=== PATIENT | female | born 1955 | race Caucasian/White ===

== ENCOUNTER 2017-07-08 07:29 | Inpatient (IN) ==
[2017-07-02 15:15] LABS: Appearance,Urine CLEAR; Bacteria,Urine 0 /hpf (0); Bilirubin,Urine NEG (NEG); Color,Urine YELLOW; Glucose,Urine (UA) NEGATIVE (NEG); Leukocyte Esterase,Urine NEG /uL (NEG); Mucus,Urine FEW /hpf (0); Protein,Urine NEG (NEG); Specific Gravity,Urine 1.016 (1.000-1.035); Urine Blood 0.2 mg/dL (<0.03); Urine RBC 1 /hpf (0-1); Urine Squamous Epithelial Cell 1 /hpf (0-4); Urine WBC 1 /hpf (0-4); Urobilinogen,Urine NEG (NEG)
[2017-07-02 15:55] LABS: Basophils # (Auto) 0 K/mcL (0.0-0.3); Basophils % (Auto) 0.5 % (0.0-2.0); Eosinophils # (Auto) 0.4 K/mcL (0.0-0.7); Eosinophils % (Auto) 4.9 % (0.0-7.0); Granulocytes % (Auto) 56.7 % (38.0-78.0); Lymphocytes # (Auto) 2.2 K/mcL (1.5-4.8); Lymphocytes % (Auto) 30.7 % (15.5-49.0); Mean Cell Volume 88.3 fL (80.0-100.0); Mean Corpuscular HGB Conc 34.4 g/dL (31.0-36.0); Mean Corpuscular Hemoglobin 30.3 pg (26.0-34.0); Monocytes # (Auto) 0.5 K/mcL (0.1-0.9); Monocytes % (Auto) 7.2 % (1.0-12.0); Platelet Count 241 K/mcL (140-440); RBC 4.75 M/mcL (4.00-5.20); Red Cell Distribution Width 13.4 % (11.5-14.5)
[2017-07-02 16:12] LABS: Blood Urea Nitrogen 17 mg/dl (6-20)
[~2017-07-08 07:29] MED LIST: ACETAMINOPHEN 500 MG TABLET PO SCH; CELECOXIB 200 MG CAPSULE PO SCH; PREGABALIN 75 MG CAPSULE PO SCH; ceFAZolin 1 GM VIAL IV SCH; oxyCODONE 10 MG TAB.ER.12H PO SCH
[2017-07-08] MEDS ORDERED: KETOROLAC 30 MG, ROPIVACAINE HCL/PF 49.5 ML, EPINEPHrine 0.5 MG, 0.9 % SODIUM CHLORIDE ... IJ ONE (09:00)
[2017-07-08] MEDS ORDERED: SCOPOLAMINE 1 PATCH PATCH TOPICAL SCH (10:15)
[2017-07-08] MEDS ORDERED: GLYCOPYRROLATE 0.2 MG/ML VIAL IV ONE (10:45)
[2017-07-08] MEDS ORDERED: SCOPOLAMINE 1 PATCH PATCH TOPICAL ONE (10:45)
[2017-07-08] MEDS ORDERED: METOCLOPRAMIDE 10 MG/2 ML VIAL IV ONE (10:45)
[2017-07-08] MEDS ORDERED: DEXAMETHASONE 10 MG/ML VIAL IV ONE (10:45)
[2017-07-08] MEDS ORDERED: PHENYLEPHRINE 10 MG/ML VIAL IV ONE (10:45)
[2017-07-08] MEDS ORDERED: PROPOFOL 200 MG/20 ML VIAL IV ONE (10:45)
[2017-07-08] MEDS ORDERED: MIDAZOLAM 2 MG/2 ML VIAL IV ONE (10:45)
[2017-07-08] MEDS ORDERED: KETAMINE 100 MG/ML ML IV ONE (10:45)
[2017-07-08] MEDS ORDERED: FAMOTIDINE/PF 20 MG/2 ML VIAL IV ONE (10:45)
[2017-07-08] MEDS ORDERED: ONDANSETRON 4 MG/2 ML VIAL IV ONE (10:45)
[2017-07-08] MEDS ORDERED: TRANEXAMIC ACID 1,000 MG/10 ML VIAL IV ONE ×2 (10:45→13:05)
[2017-07-08] MEDS ORDERED: LIDOCAINE HCL/PF 100 MG/5 ML SYRINGE IV ONE (10:45)
[2017-07-08] MEDS ORDERED: PROMETHAZINE 25 MG/ML VIAL IV ONE (10:45)
[2017-07-08] MEDS ORDERED: GENTAMICIN SULFATE 800 MG/20 ML VIAL IR ONE (11:09)
[2017-07-08] MEDS ORDERED: FLUMAZENIL 0.1 MG/ML ML IV PRN (11:32)
[2017-07-08] MEDS ORDERED: fentaNYL 100 MCG/2 ML VIAL IV PRN (11:32)
[2017-07-08] MEDS ORDERED: MEPERIDINE 25 MG/ML SYRINGE IV PRN (11:32)
[2017-07-08] MEDS ORDERED: ONDANSETRON 4 MG/2 ML VIAL IV PRN ×2 (11:32→13:05)
[2017-07-08] MEDS ORDERED: LACTATED RINGERS 250 ML IV PRN (11:32)
[2017-07-08] MEDS ORDERED: BENZOCAINE/MENTHOL 1 LOZENGE PO PRN ×2 (11:32→13:05)
[2017-07-08] MEDS ORDERED: IPRATROPIUM/ALBUTEROL 3 ML AMPUL.NEB NEB PRN (11:32)
[2017-07-08] MEDS ORDERED: NALOXONE HCL 0.4 MG/ML VIAL IV PRN (11:32)
[2017-07-08] MEDS ORDERED: METHOCARBAMOL 1,000 MG/10 ML VIAL IV PRN (11:32)
[2017-07-08] MEDS ORDERED: LACTATED RINGERS 1,000 ML IV SCH (11:45)
--- NOTE | 2017-07-08 12:22 | Brief Operative Note ---
Date of procedure: 07/08/17 Pre-op diagnosis: left hip djd with hip dysplasia Post-op diagnosis: same Procedure: left tawnya Grafts/Implants: Yes Anesthesia: GETA Complications: none Complications Description: 07/08/17 12:21 none Surgeon: Sarabjit Calvin Estimated blood loss (cc): 50 Tourniquet Time (Minutes): 0 Specimens Removed/Pathology: none sent Condition: stable Disposition: PACU
--- NOTE | 2017-07-08 12:53 | Operative Note ---
DATE OF OPERATION: 07/08/2017 PREOPERATIVE DIAGNOSIS: Left hip dysplasia with degenerative arthritis. POSTOPERATIVE DIAGNOSIS: Left hip dysplasia with degenerative arthritis. PROCEDURE: Left total hip arthroplasty. SURGEON: Sarabjit Calvin MD DENTURES LAB TECHNICIAN: Carmen Farfan PA-C ANESTHESIA: General LMA and anesthesia with spinal. ESTIMATED BLOOD LOSS: About 50 mL COMPLICATIONS: None. MEDICATIONS: Tranexamic acid and IV antibiotics preop were given prior to incision. IMPLANTS: [place] cementless components with three screws in the acetabulum. DESCRIPTION OF PROCEDURE: The patient was brought to the operating room and put to sleep with general LMA anesthesia. Once asleep, the patient had the left hip sterilely prepped and draped in the usual sterile fashion. Once this was done, we confirmed the hip as the operative site with a timeout by initials and consent form and x-rays. We then made a superior posterior approach to the hip through the [place]. I identified the fascial layer and incised through the muscles in a linear fashion. I then released the capsule, piriformis obturator internus which were all tagged. I dislocated the hip and made our neck cut at 32 mm. Once done, I then broached up on the femur and reamed up on the acetabulum. The acetabulum was reamed up to the size 50. A 50 cup was placed with three screws because the cup was not solid enough, though fit fairly well. It seemed to seat well. We irrigated thoroughly and placed three screws, placed a 36 mm liner, broached up to the size 3 stem. We took an x-ray. It appeared to be slightly longer on the left so we countersunk the stem to the bony surface and irrigated thoroughly. This seemed to fit very nicely and then we placed a neutral neck length. This seemed to be equal in leg length. We irrigated. It was very stable up to 90 degrees of internal rotation. We irrigated thoroughly and then repaired the capsule with #2 Ethibond. The fascial layer was closed with a Stratafix after an injection and thorough irrigation. Skin was closed with 0 Vicryl and adhesive closure. The patient tolerated this well without complication. RBH:carmen Job ID: [id number] Doc ID: [id number] Sarabjit Calvin MD
[2017-07-08] MEDS ORDERED: TRANEXAMIC ACID 1,000 MG/10 ML VIAL IV SCH (12:55)
[2017-07-08] MEDS ORDERED: KETOROLAC 30 MG/ML VIAL IV PRN (13:05)
[2017-07-08] MEDS ORDERED: FLEETS ADULT ENEMA PR PRN (13:05)
[2017-07-08] MEDS ORDERED: HYDROmorphone 2 MG/ML VIAL IV PRN (13:05)
[2017-07-08] MEDS ORDERED: BISACODYL 10 MG SUPP.RECT PR PRN (13:05)
[2017-07-08] MEDS ORDERED: POLYETHYLENE GLYCOL 3350 17 GM PACKET PO PRN (13:05)
[2017-07-08] MEDS ORDERED: ACETAMINOPHEN 325 MG TABLET PO PRN (13:05)
[2017-07-08] MEDS ORDERED: MAGNESIUM HYDROXIDE 30 ML ORAL.SUSP PO PRN (13:05)
[2017-07-08] MEDS: 0.45 % SODIUM CHLORIDE 1,000 ML IV SCH ×2 (13:32→23:48)
[2017-07-08] MEDS: 0.9 % SODIUM CHLORIDE 10 ML SYRINGE IV SCH ×2 (13:32→20:29)
--- NOTE | 2017-07-08 13:40 | XRay Report ---
CLINICAL INFORMATION: :post total hip COMPARISON: None. FINDINGS: Left total hip prostheses is anatomically aligned. No osseous abnormality. Soft tissue swelling over the surgical site seen at IMPRESSION: Negative Interpreted and Authenticated by: Julián Story 07/08/17
[2017-07-08] MEDS: ceFAZolin 1 GM VIAL IV SCH (17:44)
[2017-07-08] MEDS: HYDROcodone/APAP 10/325MG TABLET PO PRN ×3 (17:45→23:19)
[2017-07-08] MEDS: FERROUS SULFATE 325 MG TABLET PO SCH (17:45)
[2017-07-08] MEDS: DOCUSATE SODIUM 100 MG CAPSULE PO SCH (20:29)
[2017-07-08] MEDS: ASPIRIN 325 MG ENTERIC COATED TABLET PO SCH (20:29)
[2017-07-08] MEDS ORDERED: OMEPRAZOLE 20 MG CAPSULE PO SCH (21:00)
[2017-07-08] MEDS ORDERED: TEMAZEPAM 15 MG CAPSULE PO PRN (21:00)
[2017-07-08] MEDS ORDERED: SENNOSIDES 1 TABLET PO SCH (21:00)
[2017-07-09] MEDS: ceFAZolin 1 GM VIAL IV SCH (03:24)
[2017-07-09] MEDS: 0.9 % SODIUM CHLORIDE 10 ML SYRINGE IV SCH (05:55)
[2017-07-09] MEDS: HYDROcodone/APAP 10/325MG TABLET PO PRN (07:43)
[2017-07-09] MEDS: FERROUS SULFATE 325 MG TABLET PO SCH (07:47)
--- NOTE | 2017-07-09 07:56 | Orthopedic Progress Note ---
Subjective Patient information: Note initiated : 07/09/17 at 7:54 am Service Date, if different from initiated Date: [] Patient: Arianna Mantilla 61 y/o F admitted on 07/08/17 for Left Total Hip Arthroplasty. Chief Complaint: [some groin pain and no thigh pain no nausea and vomiting] Objective Vital signs: Vital Signs Temp Pulse Resp BP BP Pulse Ox 07/09/17 07:33 97.0 F 60 16 111/71 94 07/09/17 05:00 92 07/09/17 03:24 97.0 F 62 16 110/63 92 07/09/17 03:00 92 07/09/17 01:00 93 07/08/17 23:46 97.7 F 79 16 111/71 93 07/08/17 23:00 93 07/08/17 21:00 94 07/08/17 19:32 97.5 F 72 16 118/80 94 07/08/17 19:00 94 07/08/17 17:00 97 07/08/17 16:27 110/74 93 07/08/17 15:27 115/71 99 07/08/17 15:05 95 07/08/17 14:58 106/67 98 07/08/17 14:28 98/62 94 07/08/17 14:12 97/63 97 07/08/17 13:57 94/61 99 07/08/17 13:42 98/67 97 07/08/17 13:27 110/66 95 07/08/17 13:21 97.8 F 71 12 105/67 98 07/08/17 13:17 68 11 L 112/56 95 07/08/17 13:12 78 20 110/57 96 07/08/17 13:07 78 11 L 113/55 96 07/08/17 13:02 69 14 112/67 96 07/08/17 12:57 74 14 102/49 96 07/08/17 12:52 76 15 101/49 95 07/08/17 12:47 80 15 100/49 95 07/08/17 12:42 96.8 F L 87 15 118/50 93 Intake and Output 07/08/17 07/09/17 07/09/17 21:59 05:59 13:59 Intake Total 1900 / 1900 Output Total 1350 / 1350 550 / 550 200 / 200 Balance -1350 / -1350 1350 / 1350 -200 / -200 Intake: IV 1000 / 1000 Sodium Chloride 0.45% 1,000 ml 1000 / 1000 @ 100 mls/hr IV .Q10H WILLIAM Rx#: [id number] Oral 900 / 900 Output: Void Amount 1350 / 1350 550 / 550 200 / 200 Other: # Voids 1 1 Weight 193 lb 8 oz Intake & Output: Intake & Output 07/08/17 07/09/17 07/09/17 21:59 05:59 13:59 Intake Total 1900 / 1900 Output Total 1350 / 1350 550 / 550 200 / 200 Balance -1350 / -1350 1350 / 1350 -200 / -200 Weight 193 lb 8 oz Intake: IV 1000 / 1000 Sodium Chloride 0.45% 1,000 ml 1000 / 1000 @ 100 mls/hr IV .Q10H WILLIAM Rx#: [id number] Oral 900 / 900 Output: Void Amount 1350 / 1350 550 / 550 200 / 200 Other: # Voids 1 1 Incision: Yes healing Incision clean and dry: Yes Dressing: Yes clean Weight bearing status: full Neurological exam IM: Yes alert, Yes oriented X3, Yes neurovascular intact Extremities exam IM: Yes Foot pink and warm (walking well) - Labs CBC & BMP: 07/09/17 04:35 07/02/17 13:32 Labs: Orthopedic Labs 07/02/17 13:32 PT 12.6 INR 0.9 APTT 32 07/09/17 07/02/17 04:35 13:32 Hgb 14.4 Hct 34.9 L 41.9
--- NOTE | 2017-07-09 08:01 | Discharge Summary ---
Ortho Discharge - [facility] - Patient Instructions Diet: Regular Diet Activity: activity as tolerated, weight bearing as tolerated Total Hip Protocol: Follow activity instructions as provided by Physical Therapy. Dressing Care: Sarah Ag - leave on for 5 days - Follow Up Plan Follow Up Appointments: Sarabjit Calvin MD [Physician] - 07/23/17 1:40 pm Disposition: Home, Self-Care Prognosis: Good Rehab Potential: Good I certify that the patient requires SNF services: No Overall status at discharge: patient is progressing back to baseline - Orders For Discharge Prescriptions: HYDROcodone/APAP 10/325MG [Tobyhanna 10-325Mg] 10 mg PO Q4HP PRN #60 tab PRN Reason: Pain Level 3-6 Additional Discharge Orders: Physical Therapy at Discharge - [facility] Location: Determined By Patient Toilet Riser Discharge Order Location: Determined By Patient Walker Location: Determined By Patient
[2017-07-09] MEDS: ASPIRIN 325 MG ENTERIC COATED TABLET PO SCH (08:09)
[2017-07-09] MEDS: DOCUSATE SODIUM 100 MG CAPSULE PO SCH (08:10)
[2017-07-09] MEDS ORDERED: FEXOFENADINE 180 MG TABLET PO SCH (09:00)
[2017-07-09] MEDS ORDERED: CALCIUM W/VIT D3 500 MG TABLET PO SCH (09:00)
[2017-07-09] MEDS ORDERED: GLUCOSAMINE/CHONDROITIN SULF A 1 CAP CAPSULE PO SCH (09:00)
[2017-07-09] MEDS: 0.45 % SODIUM CHLORIDE 1,000 ML IV SCH (09:50)
== END 2017-07-09 12:25 | disposition home or self-care (01) | DRG 470 ==
LOC: MEDSUR 07:29
PROVIDERS: ADMIT Orthopaedic Surgery; ATTEND Orthopaedic Surgery